=== PATIENT | female | born 1990 | race Caucasian/White ===

== ENCOUNTER 2019-05-24 10:31 | Emergency (ER) | payer SELFPAY ==
[~2019-05-24] VITALS: Ht 154.9 cm; Wt 44.0 kg
[2019-05-24 10:59] VITALS: BP 123/79
== END 2019-05-24 11:57 | disposition home or self-care (01) ==
LOC: ER 10:31
DX: R05 Cough (principal); R07.89 Other chest pain; R50.9 Fever, unspecified
CPT/HCPCS: 99281